=== PATIENT | male | born 1990 | race Caucasian/White ===

== ENCOUNTER 2018-01-18 23:32 | Emergency (ER) | payer SELFPAY ==
[~2018-01-18] VITALS: Ht 188 cm; Wt 90.7 kg
[2018-01-18 23:35] VITALS: BP 113/72
--- NOTE | 2018-01-18 23:35 | NUR ---
PT [facility] WITH [employer] [facility], PREBOOK. TAKEN TO BED 6
--- NOTE | 2018-01-18 23:35 | NUR ---
27/M FIOR GUZMÁN, [facility] AND [facility] FOR PRE-BOOK. PER TRIAGE, PT BROKE IN PT'S GIRLFRIEND'S HOUSE, TRIED TO HANG SELF, PT WAS FOUND WITH ROPE LOOSELY ON NECK. PT WAS ON ROUTE TO BE BOOKED, THEN PT BECAME PALE AND DIAPHORETIC. PT ARRIVES TO ER, AOX4, AIRWAY PATENT, NO SIGNS OF NECK TRAUMA, VSS, RR EVEN AND UNLABORED. LUNG SOUNDS CLEAR BL. PT DENIES ANY PAIN. PT REPORTS TAKING 4 ANTIDEPRESSANT PILLS OF UNKNOWN NAME. PT REPORTS FEELING DEPRESSED, HAVING THOUGHTS OF HARMING SELF WITH NO PLAN. SAFETY MEASURES ENSURED, [facility] GUZMÁN AT BEDSIDE WHO STATES THAT PT DOES NOT MEET CRITERIA FOR 5150 AT THIS TIME. PT DENIES MED HX, RX. NKA. ER MD MADE AWARE.
--- NOTE | 2018-01-18 23:58 | NUR ---
Dr. Ramírez evaluating patient at bedside.
[2018-01-19 00:08] VITALS: BP 110/70
--- NOTE | 2018-01-19 00:08 | NUR ---
Patient discharged with v/s stable. Written and verbal after care instructions given and explained. Patient verbalized understanding. Ambulatory with steady gait. All questions addressed prior to discharge. Advised to follow up with PMD. Accompanied by Domi GUZMÁN.
== END 2018-01-19 00:08 ==
LOC: MED 23:32
DX: Z02.89 Encounter for other administrative examinations (principal); R45.851 Suicidal ideations; R42 Dizziness and giddiness; F17.200 Nicotine dependence, unspecified, uncomplicated
CPT/HCPCS: 99283